=== PATIENT | female | born 2000 | race Caucasian/White ===

== ENCOUNTER 2025-05-24 13:48 | Emergency (ER) | payer OTHER, SELFPAY ==
[2025-05-24 13:51] VITALS: BP 129/59; TEMP 97.6; O2SAT 98
[2025-05-24] MEDS ORDERED: BUSP10TA PO (14:11)
[2025-05-24] MEDS ORDERED: PRENTAB9 PO (14:11)
[2025-05-24] MEDS ORDERED: ZOLO100T PO (14:11)
== END 2025-05-24 13:52 | disposition admitted as inpatient to this hospital (09) ==
LOC: M ED 13:48
DX: Z53.21 Procedure and treatment not carried out due to patient leaving prior to being seen by health care provider (principal)

== ENCOUNTER 2025-05-24 13:59 | Outpatient (CLI) | payer OTHER ==
[~2025-05-24] VITALS: Ht 157.5 cm; Wt 77.7 kg
[2025-05-24] MEDS ORDERED: PRENTAB9 PO (14:11)
[2025-05-24] MEDS ORDERED: BUSP10TA PO (14:11)
[2025-05-24] MEDS ORDERED: ZOLO100T PO (14:11)
[2025-05-24] MEDS ORDERED: HOME MED LIST COMPLETE! XX SCH (14:15)
[2025-05-24 14:19] VITALS: BP 111/65; O2SAT 97
[2025-05-24 14:35] VITALS: BP 114/67
[2025-05-24 14:50] VITALS: BP 113/64
[2025-05-24 15:05] VITALS: BP 117/66
[2025-05-24 15:20] VITALS: BP 115/67
== END 2025-05-24 15:52 | disposition home or self-care (01) ==
LOC: M LDO 13:59
PROVIDERS: ATTEND Advanced Practice Midwife
DX: O26.893 Other specified pregnancy related conditions, third trimester (principal); O99.343 Other mental disorders complicating pregnancy, third trimester; Z87.59 Personal history of other complications of pregnancy, childbirth and the puerperium; F41.9 Anxiety disorder, unspecified; F32.9 Major depressive disorder, single episode, unspecified; Z3A.33 33 weeks gestation of pregnancy
CPT/HCPCS: 59025; G0463

== ENCOUNTER 2025-06-05 22:03 | Emergency (ER) | payer OTHER ==
[~2025-06-05 22:03] MED LIST: BUSP10TA PO; PRENTAB9 PO; ZOLO100T PO
== END 2025-06-05 22:16 | disposition admitted as inpatient to this hospital (09) ==
LOC: M ED 22:03
DX: Z53.21 Procedure and treatment not carried out due to patient leaving prior to being seen by health care provider (principal)

== ENCOUNTER 2025-06-05 22:09 | Outpatient (CLI) | payer OTHER ==
[~2025-06-05] VITALS: Ht 157.5 cm; Wt 79.2 kg
[2025-06-05 22:39] VITALS: BP 136/82
== END 2025-06-05 23:42 | disposition home or self-care (01) ==
LOC: M LDO 22:09
PROVIDERS: ATTEND Advanced Practice Midwife
DX: O47.03 False labor before 37 completed weeks of gestation, third trimester (principal); Z3A.34 34 weeks gestation of pregnancy; Z87.59 Personal history of other complications of pregnancy, childbirth and the puerperium; Z88.5 Allergy status to narcotic agent; Z88.1 Allergy status to other antibiotic agents
CPT/HCPCS: 59025; G0463